=== PATIENT | male | born 1935 | race African-American/Black ===

== ENCOUNTER 2020-03-05 20:42 | Inpatient (IN) | payer MEDICARE, OTHER ==
[~2020-03-05] VITALS: Ht 185.4 cm; Wt 74.7 kg
[~2020-03-05 20:42] MED LIST: ALBU1.25 NEB; FERR325T18 PO; HYDR12.517 PO; LEVO500T47 PO; LEVO750T26 IV; LISI5TAB7 PO; NIFE90TA8 PO; PRED-402 PO; PRED20TA PO; TIOT18CA INH
[2020-03-05] MEDS ORDERED: SODIUM CHLORIDE 0.9% 1,000 ML IV ONE (21:21)
--- NOTE | 2020-03-05 21:25 | NUR ---
PT CAME FROM AFTER HAVING MLTIPLE EPISODES OF BLOODY STOOL TODAY. PT WAS SEEN AT [facility] ON TUESDAY AND WAS ADMITTED AND DISCHARGED ON TUESDAY. PER PT THEY DID A COLONOSCOPY ON TUESDAY. PT SAYS NOTHING WAS FOUND ON COLONOSCOPY AND BLEEDING IMPROVED BUT STARTED AGAIN. VSS. PT ON 3 L O2 WHICH IS HIS BASELINE. DAUGHTER AT BEDSIDE. CALL LIGHT IN REACH
[2020-03-05] MEDS ORDERED: SODIUM CHLORIDE FLUSH 10ML SYR IVF ONE (21:30)
[2020-03-05 21:49] LABS: BASOPHILS # (AUTO) 0.01 x10^3/uL (0-0.1); BASOPHILS % (AUTO) 0 % (0-1); EOSINOPHILS # (AUTO) 0.07 x10^3/uL (0-0.4); EOSINOPHILS % (AUTO) 1 % (1-7); LYMPHOCYTES # (AUTO) 1.22 x10^3/uL (1-3.4); LYMPHOCYTES % (AUTO) 11 % (22-44); MD NO; MEAN CORPUSCULAR HEMOGLOBIN 28.7 pg (27.5-34.5); MEAN CORPUSCULAR HGB CONC 32.7 g/dL (33.2-36.2); MONOCYTES # (AUTO) 0.85 x10^3/uL (0.2-0.8); MONOCYTES % (AUTO) 7 % (2-9); NEUTROPHILS # (AUTO) 9.34 x10^3/uL (1.8-6.8); NEUTROPHILS % (AUTO) 81 % (42-75); PLATELET COUNT 150 x10^3/uL (130-400); RED BLOOD COUNT 3.35 x10^6/uL (4.38-5.82); RED CELL DISTRIBUTION WIDTH 14.5 % (9.4-14.8)
[2020-03-05 21:59] LABS: INTERNATIONAL NORMALIZED RATIO 0.98 (0.93-1.1); PROTHROMBIN TIME 10.4 Seconds (9.6-11.5)
[2020-03-05 22:01] LABS: ALANINE AMINOTRANSFERASE 19 U/L (12-78); ALBUMIN 3.6 g/dL (3.4-5.0); ANION GAP 8 mmol/L (5-15); CALCIUM 8.4 mg/dL (8.5-10.1); CHLORIDE 105 mmol/L (98-107); CREATININE 1.13 mg/dL (0.7-1.3)
[2020-03-05 22:03] LABS: ALKALINE PHOSPHATASE 62 U/L (45-117); BILIRUBIN,TOTAL 0.2 mg/dL (0.2-1.0); TOTAL PROTEIN 7.1 g/dL (6.4-8.2)
[2020-03-05] MEDS ORDERED: GLYC10.7 INH (22:07)
--- NOTE | 2020-03-05 22:22 | NUR ---
PT TO CT
[2020-03-05] MEDS ORDERED: OMNIPAQUE 350 MG/ML, 100ML BOTTLE ONE (22:30)
[2020-03-05] MEDS ORDERED: SODIUM CHLORIDE FLUSH 10ML SYR IVF PRN (23:00)
[2020-03-05] MEDS ORDERED: ASPI-496 PO (23:01)
[2020-03-05] MEDS ORDERED: hydrALAzine 20 MG/ML, 1ML IVPush PRN (23:30)
[2020-03-05] MEDS ORDERED: MELATONIN 5 MG TABLET PO PRN (23:30)
[2020-03-05] MEDS ORDERED: ONDANSETRON 2MG/ML, 2ML IVPush PRN (23:30)
[2020-03-05] MEDS ORDERED: DIPHENHYDRAMINE 25 MG CAPSULE PO PRN (23:30)
[2020-03-05] MEDS ORDERED: ACETAMINOPHEN 325 MG TABLET PO PRN (23:30)
[2020-03-05] MEDS ORDERED: BISACODYL 10 MG SUPP PR PRN (23:30)
[2020-03-05] MEDS ORDERED: POLYETHYLENE GLYCOL 17 GM PACKET PO PRN (23:30)
[2020-03-05] MEDS ORDERED: PANTOPRAZOLE 80 MG in SODIUM CHLORIDE 0.9% 50 ML IV ONE (23:30)
[2020-03-05] MEDS ORDERED: morphine SULFATE 10 MG/ML, 1ML IVPush PRN (23:30)
--- NOTE | 2020-03-05 23:30 | NUR ---
PT RESTING WITH NO NEEDS AT THIS TIME. FAMILY AT BEDSIDE. PT WAITING FOR BED ASSIGNMENT. CALL LIGHT IN REACH
[2020-03-06 00:57] VITALS: BP 150/56
[2020-03-06] MEDS ORDERED: ALBUTEROL SULFATE 2.5 MG/3 ML NPPB PRN (01:30)
[2020-03-06] MEDS: PANTOPRAZOLE 80 MG in SODIUM CHLORIDE 0.9% 100 ML IV SCH ×3 (01:34→20:15)
[2020-03-06 03:57] LABS: ANION GAP 6 mmol/L (5-15); BASOPHILS # (AUTO) 0.06 x10^3/uL (0-0.1); BASOPHILS % (AUTO) 1 % (0-1); CALCIUM 7.9 mg/dL (8.5-10.1); CHLORIDE 110 mmol/L (98-107); CREATININE 1.02 mg/dL (0.7-1.3); EOSINOPHILS # (AUTO) 0.31 x10^3/uL (0-0.4); EOSINOPHILS % (AUTO) 3 % (1-7); LYMPHOCYTES # (AUTO) 1.76 x10^3/uL (1-3.4); LYMPHOCYTES % (AUTO) 19 % (22-44); MD NO; MEAN CORPUSCULAR HEMOGLOBIN 28.3 pg (27.5-34.5); MEAN CORPUSCULAR HGB CONC 32.6 g/dL (33.2-36.2); MEAN PLATELET VOLUME 9.2 fL (7.4-10.4); MONOCYTES # (AUTO) 1.03 x10^3/uL (0.2-0.8); MONOCYTES % (AUTO) 11 % (2-9); NEUTROPHILS # (AUTO) 6.35 x10^3/uL (1.8-6.8); NEUTROPHILS % (AUTO) 67 % (42-75); PLATELET COUNT 127 x10^3/uL (130-400); RED BLOOD COUNT 2.92 x10^6/uL (4.38-5.82); RED CELL DISTRIBUTION WIDTH 14.4 % (9.4-14.8)
[2020-03-06] MEDS ORDERED: ALBUTEROL HFA 90 MCG/SPRAY INH PRN (04:00)
[2020-03-06] MEDS: ALBUTEROL-IPRATROPIUM MDI INH INH SCH ×4 (06:00→20:16)
[2020-03-06 06:59] VITALS: BP 128/80
[2020-03-06] MEDS ORDERED: ALBUTEROL/IPRATROPIUM 2.5MG/0.5MG, 3 ML NPPB SCH (07:00)
[2020-03-06] MEDS ORDERED: HYDROCHLOROTHIAZIDE 12.5 MG CAPSULE PO ONE (09:00)
[2020-03-06] MEDS: FORMOTEROL FUM INH SCH (09:00)
[2020-03-06] MEDS: NIFEDIPINE 90 MG PO SCH (09:00)
[2020-03-06] MEDS: GLYCOPYRROLATE INH SCH (09:00)
[2020-03-06] MEDS: SENNA/DOCUSATE TABLET PO SCH (10:44)
[2020-03-06 13:18] VITALS: BP 154/64
[2020-03-06 20:46] VITALS: BP 124/57
[2020-03-07 02:15] VITALS: BP 122/55
[2020-03-07] MEDS: ALBUTEROL-IPRATROPIUM MDI INH INH SCH ×5 (06:01→19:45)
[2020-03-07] MEDS: PANTOPRAZOLE 80 MG in SODIUM CHLORIDE 0.9% 100 ML IV SCH ×2 (06:01→15:19)
[2020-03-07 07:10] VITALS: BP 117/59
[2020-03-07] MEDS: SENNA/DOCUSATE TABLET PO SCH (08:48)
[2020-03-07] MEDS: NIFEDIPINE 90 MG PO SCH (08:50)
[2020-03-07] MEDS: FORMOTEROL FUM INH SCH (08:50)
[2020-03-07] MEDS: GLYCOPYRROLATE INH SCH (08:50)
[2020-03-07 13:42] VITALS: BP 151/62
[2020-03-07] MEDS ORDERED: GOLYTELY 4,000ML ORAL.SOL PO ONE (19:00)
[2020-03-07 20:49] VITALS: BP 153/55
[2020-03-08] MEDS ORDERED: METHYLNALTREXONE 12 MG/0.6 ML SYR SQ ONE
[2020-03-08] MEDS ORDERED: METOCLOPRAMIDE 5 MG/ML, 2ML IVPush ONE
[2020-03-08] MEDS ORDERED: DIPHENHYDRAMINE 50 MG/ML, 1ML IVPush ONE
[2020-03-08] MEDS ORDERED: DICYCLOMINE 10 MG/ML, 2ML IM ONE
[2020-03-08] MEDS: PANTOPRAZOLE 80 MG in SODIUM CHLORIDE 0.9% 100 ML IV SCH ×3 (01:33→22:15)
[2020-03-08 01:36] VITALS: BP 151/71
[2020-03-08 03:00] LABS: BASOPHILS # (AUTO) 0.01 x10^3/uL (0-0.1); BASOPHILS % (AUTO) 0 % (0-1); EOSINOPHILS # (AUTO) 0.38 x10^3/uL (0-0.4); EOSINOPHILS % (AUTO) 4 % (1-7); LYMPHOCYTES # (AUTO) 1.51 x10^3/uL (1-3.4); LYMPHOCYTES % (AUTO) 16 % (22-44); MD NO; MEAN CORPUSCULAR HEMOGLOBIN 28.7 pg (27.5-34.5); MEAN CORPUSCULAR HGB CONC 32.8 g/dL (33.2-36.2); MEAN PLATELET VOLUME 9.4 fL (7.4-10.4); MONOCYTES # (AUTO) 0.81 x10^3/uL (0.2-0.8); MONOCYTES % (AUTO) 9 % (2-9); NEUTROPHILS # (AUTO) 6.54 x10^3/uL (1.8-6.8); NEUTROPHILS % (AUTO) 71 % (42-75); PLATELET COUNT 139 x10^3/uL (130-400); RED BLOOD COUNT 3.09 x10^6/uL (4.38-5.82); RED CELL DISTRIBUTION WIDTH 13.9 % (9.4-14.8)
[2020-03-08 03:04] LABS: ANION GAP 9 mmol/L (5-15); CALCIUM 8.6 mg/dL (8.5-10.1); CHLORIDE 107 mmol/L (98-107); CREATININE 1.15 mg/dL (0.7-1.3)
[2020-03-08] MEDS: ALBUTEROL-IPRATROPIUM MDI INH INH SCH ×4 (05:43→20:09)
[2020-03-08 08:39] VITALS: BP 133/53
[2020-03-08] MEDS: SENNA/DOCUSATE TABLET PO SCH (09:00)
[2020-03-08] MEDS: GLYCOPYRROLATE INH SCH (09:00)
[2020-03-08] MEDS: FORMOTEROL FUM INH SCH (09:00)
[2020-03-08] MEDS ORDERED: PROPOFOL 10 MG/ML, 20ML ONE ×3 (10:29)
[2020-03-08] MEDS ORDERED: ONDANSETRON 2MG/ML, 2ML IVPush PRN (11:00)
[2020-03-08] MEDS ORDERED: FENTANYL PF 100 MCG/2ML IV PRN (11:00)
[2020-03-08] MEDS ORDERED: DIPHENHYDRAMINE 50 MG/ML, 1ML IVPush PRN (11:00)
[2020-03-08] MEDS ORDERED: DIAZEPAM 5 MG/ML, 2ML IVPush PRN (11:00)
[2020-03-08] MEDS ORDERED: PROMETHAZINE 25 MG/ML, 1ML IVPush PRN (11:00)
[2020-03-08] MEDS ORDERED: HYDROmorphone 1 MG/ML, 1ML INJ IVPush PRN (11:00)
[2020-03-08] MEDS ORDERED: ALBUTEROL SULFATE 2.5 MG/3 ML NPPB PRN (11:00)
[2020-03-08] MEDS ORDERED: PROMETHAZINE 12.5 MG SUPP PR PRN (11:00)
[2020-03-08] MEDS ORDERED: EPHEDRINE 50 MG/ML, 1ML IVPush PRN (11:00)
[2020-03-08] MEDS ORDERED: hydrALAzine 20 MG/ML, 1ML IV PRN (11:00)
[2020-03-08] MEDS ORDERED: LABETALOL 5MG/ML, 20ML IV PRN (11:00)
[2020-03-08] MEDS ORDERED: MEPERIDINE/PF 25MG/0.5ML IVPush PRN (11:00)
[2020-03-08] MEDS ORDERED: MIDAZOLAM 1 MG/ML, 2ML IV PRN (11:00)
[2020-03-08] MEDS ORDERED: OXYcodone 5 MG/5 ML ORAL.SOL UDC PO PRN (11:00)
[2020-03-08 13:27] VITALS: BP 162/69
[2020-03-08] MEDS ORDERED: POTASSIUM CHLORIDE 20 MEQ TAB.ER.PRT PO ONE (19:30)
[2020-03-08 20:02] VITALS: BP 156/76
[2020-03-09 01:00] VITALS: BP 115/57
[2020-03-09 03:23] LABS: ANION GAP 6 mmol/L (5-15); CHLORIDE 107 mmol/L (98-107)
[2020-03-09 03:24] LABS: BASOPHILS # (AUTO) 0.03 x10^3/uL (0-0.1); BASOPHILS % (AUTO) 0 % (0-1); EOSINOPHILS % (AUTO) 6 % (1-7); LYMPHOCYTES # (AUTO) 1.09 x10^3/uL (1-3.4); LYMPHOCYTES % (AUTO) 16 % (22-44); MD NO; MEAN CORPUSCULAR HEMOGLOBIN 27.4 pg (27.5-34.5); MEAN CORPUSCULAR HGB CONC 31.1 g/dL (33.2-36.2); MONOCYTES # (AUTO) 0.75 x10^3/uL (0.2-0.8); MONOCYTES % (AUTO) 11 % (2-9); NEUTROPHILS # (AUTO) 4.61 x10^3/uL (1.8-6.8); NEUTROPHILS % (AUTO) 67 % (42-75); PLATELET COUNT 152 x10^3/uL (130-400); RED BLOOD COUNT 2.96 x10^6/uL (4.38-5.82); RED CELL DISTRIBUTION WIDTH 14.1 % (9.4-14.8)
[2020-03-09] MEDS: ALBUTEROL-IPRATROPIUM MDI INH INH SCH ×4 (05:22→21:04)
[2020-03-09] MEDS: GLYCOPYRROLATE INH SCH (08:04)
[2020-03-09] MEDS: FORMOTEROL FUM INH SCH (08:04)
[2020-03-09] MEDS: SENNA/DOCUSATE TABLET PO SCH (08:07)
[2020-03-09 08:10] VITALS: BP 125/63
[2020-03-09] MEDS: PANTOPRAZOLE 80 MG in SODIUM CHLORIDE 0.9% 100 ML IV SCH ×2 (08:51→21:04)
[2020-03-09 10:05] VITALS: BP 127/49
[2020-03-09 14:45] VITALS: BP 146/59
[2020-03-09 21:01] VITALS: BP 123/55
[2020-03-10 02:25] VITALS: BP 124/54
[2020-03-10] MEDS: ALBUTEROL-IPRATROPIUM MDI INH INH SCH ×2 (05:59→10:13)
[2020-03-10] MEDS ORDERED: ASPIRIN 81 MG TABLET EC PO SCH (06:00)
[2020-03-10] MEDS: PANTOPRAZOLE 80 MG in SODIUM CHLORIDE 0.9% 100 ML IV SCH (07:04)
[2020-03-10 07:46] VITALS: BP 97/61
[2020-03-10 07:52] VITALS: BP 147/61
[2020-03-10 07:58] LABS: ANION GAP 9 mmol/L (5-15); CHLORIDE 108 mmol/L (98-107); CREATININE 1.03 mg/dL (0.7-1.3)
[2020-03-10] MEDS: FORMOTEROL FUM INH SCH (09:00)
[2020-03-10] MEDS: GLYCOPYRROLATE INH SCH (09:00)
[2020-03-10] MEDS: SENNA/DOCUSATE TABLET PO SCH (09:00)
[2020-03-10 10:04] LABS: BASOPHILS # (AUTO) 0.01 x10^3/uL (0-0.1); BASOPHILS % (AUTO) 0 % (0-1); EOSINOPHILS # (AUTO) 0.33 x10^3/uL (0-0.4); EOSINOPHILS % (AUTO) 4 % (1-7); LYMPHOCYTES # (AUTO) 1.15 x10^3/uL (1-3.4); LYMPHOCYTES % (AUTO) 13 % (22-44); MD NO; MEAN CORPUSCULAR HEMOGLOBIN 27.9 pg (27.5-34.5); MEAN CORPUSCULAR HGB CONC 31.9 g/dL (33.2-36.2); MEAN PLATELET VOLUME 8.8 fL (7.4-10.4); MONOCYTES # (AUTO) 0.62 x10^3/uL (0.2-0.8); MONOCYTES % (AUTO) 7 % (2-9); NEUTROPHILS # (AUTO) 6.75 x10^3/uL (1.8-6.8); NEUTROPHILS % (AUTO) 76 % (42-75); PLATELET COUNT 190 x10^3/uL (130-400); RED BLOOD COUNT 3.15 x10^6/uL (4.38-5.82); RED CELL DISTRIBUTION WIDTH 14.4 % (9.4-14.8)
[2020-03-10 14:23] VITALS: BP 154/66
[2020-03-10] MEDS ORDERED: PANT40TA3 PO (14:33)
[2020-03-10] MEDS ORDERED: ASPI81TA45 PO (14:33)
[2020-03-10] MEDS ORDERED: HYDR25SU3 PR (14:36)
== END 2020-03-10 16:08 | disposition home or self-care (01) | DRG 377 ==
LOC: ED 21:33 → OBSVTOIN 23:18 → EDIP 23:18 → INTOOBSV 23:18 → 3N 03-06 00:20 → DCLOUNGE 03-10 16:04
PROVIDERS: ADMIT Family Medicine; ATTEND Hospitalist
PROC: 0DJD8ZZ Inspection of Lower Intestinal Tract, Via Natural or Artificial Opening Endoscopic (ICD-10-PCS; 2020-03-08)
PROC: 0DJ08ZZ Inspection of Upper Intestinal Tract, Via Natural or Artificial Opening Endoscopic (ICD-10-PCS; principal; 2020-03-08 09:00)
DX: K57.31 Diverticulosis of large intestine without perforation or abscess with bleeding (principal); J18.9 Pneumonia, unspecified organism; D62 Acute posthemorrhagic anemia; E46 Unspecified protein-calorie malnutrition; K64.1 Second degree hemorrhoids; D69.6 Thrombocytopenia, unspecified; I10 Essential (primary) hypertension; J43.9 Emphysema, unspecified; K44.9 Diaphragmatic hernia without obstruction or gangrene; N28.9 Disorder of kidney and ureter, unspecified; I95.9 Hypotension, unspecified; R73.9 Hyperglycemia, unspecified; Z79.82 Long term (current) use of aspirin; Z80.0 Family history of malignant neoplasm of digestive organs; Z87.891 Personal history of nicotine dependence; Z99.81 Dependence on supplemental oxygen; Z20.828 Contact with and (suspected) exposure to other viral communicable diseases; Z87.01 Personal history of pneumonia (recurrent)
CPT/HCPCS: 36415; 71045; 74177; 80048; 80053; 82728; 83036; 83540; 83550; 83735; 85014; 85018; 85025; 85610; 85730; 86850; 86900; 87635; 93005; 99285; G0378; J2704; Q9967; C9113; J7030